=== PATIENT | male | born 1990 | race Caucasian/White ===

== ENCOUNTER 2019-07-17 09:43 | Day surgery (SDC) | payer BC ==
[~2019-07-17 09:43] MED LIST: Ketamine 500 mg/10 ML MDV ONE; Lactated Ringers 1,000 ML IV SCH; Midazolam 1 MG/ML 2 ML SDV ONE; Propofol 200 MG/20 ML SDV ONE; Sodium Chloride 0.9% 10 ML Syringe FLUSH PRN
[2019-07-17] MEDS ORDERED: Lactated Ringers 1,000 ML IV SCH (09:45)
[2019-07-17] MEDS ORDERED: Sodium Chloride 0.9% 10 ML Syringe FLUSH PRN (09:45)
[2019-07-17] MEDS ORDERED: Propofol 200 MG/20 ML SDV ONE (10:58)
[2019-07-17] MEDS ORDERED: Lidocaine 2% 5 ML SDV ONE (10:58)
[2019-07-17] MEDS ORDERED: Midazolam 1 MG/ML 2 ML SDV ONE (10:58)
[2019-07-17] MEDS ORDERED: Ketamine 500 mg/10 ML MDV ONE (10:58)
[2019-07-17] MEDS ORDERED: Ondansetron 4 MG/2 ML SDV ONE (10:58)
--- NOTE | 2019-07-17 11:03 | PCM.PN ---
- General Info Date of Service: 07/17/19 - Review of Systems Systems Review Comment:: 28-year-old male referred for EGD. He has history of upper abdominal bloating and pain. He also states that he has been diagnosed with Crohn's disease. The patient is medically stable to proceed today. His recent history and physical is reviewed and no significant changes are noted. I discussed the proposed EGD with the patient. He agrees to proceed accepting risks. - Patient Data Vitals - Most Recent: Last Vital Signs Temp 98.7 F 07/17/19 10:20 Pulse 74 07/17/19 10:20 Resp 20 07/17/19 10:20 BP 110/52 L 07/17/19 10:20 Pulse Ox 98 07/17/19 10:20 Weight - Most Recent: 89.811 kg Med Orders - Current: Current Medications Lactated Ringer's (Ringers, Lactated) 1,000 mls @ 125 mls/hr IV ASDIRECTED ROBYN Last Admin: 07/17/19 10:29 Dose: 125 mls/hr Sodium Chloride (Saline Flush) 10 ml FLUSH ASDIRECTED PRN PRN Reason: Keep Vein Open Discontinued Medications Ketamine HCl (Ketalar) Confirm Administered Dose 500 mg .ROUTE .STK-MED ONE Stop: 07/17/19 08:40 Midazolam HCl (Versed 1 Mg/Ml) Confirm Administered Dose 2 mg .ROUTE .STK-MED ONE Stop: 07/17/19 08:40 Propofol (Diprivan 20 Ml) Confirm Administered Dose 200 mg .ROUTE .STK-MED ONE Stop: 07/17/19 08:40 - Problem List Review Problem List Initiated/Reviewed/Updated: Yes - My Orders Last 24 Hours: My Active Orders 07/17/19 09:45 Patient Status [ADT] Routine Peripheral IV Care [RC] . DIRECTED Verify Patient Consent Obtain [RC] ASDIRECTED Lactated Ringers [Ringers, Lactated] 1,000 ml IV ASDIRECTED Sodium Chloride 0.9% [Saline Flush] 10 ml FLUSH ASDIRECTED PRN Peripheral IV Insertion Adult [OM.PC] Routine - Assessment Assessment:: epigastric pain - Plan Plan:: EGD
--- NOTE | 2019-07-17 11:32 | PCM.OPNOTE ---
- General Post-Op/Procedure Note Date of Surgery/Procedure: 07/17/19 Operative Procedure(s): incomplete EGD Findings: Grossly normal appearing esophagus Food filled stomach Pre Op Diagnosis: Abdominal pain bloating Post-Op Diagnosis: Food filled stomach Anesthesia Technique: MAC Primary Surgeon: Maik Caraballo Pathology: none Complications: None Condition: Good
--- NOTE | 2019-07-17 15:10 | OR ---
Date of Procedure: 07/17/2019 PREOPERATIVE DIAGNOSES: 1. Epigastric pain. 2. Weight loss. POSTOPERATIVE DIAGNOSES: 1. Food-filled stomach. 2. Grossly normal esophagus. OPERATION PERFORMED: Incomplete esophagogastroscopy. INDICATIONS FOR SURGERY: This 28-year-old male has been having history of epigastric pain and some episodes of vomiting. He is referred for diagnostic upper endoscopy. FINDINGS: The patient's stomach was completely filled with partially digested food, obscuring any visualization of the stomach. The lining of the esophagus grossly appeared normal without evidence of stenosis, but visualization was limited because of food. DESCRIPTION OF PROCEDURE: The patient was taken to the operating room. He was given intravenous sedation and his throat was topically anesthetized. With him in the left lateral decubitus position, the gastroscope was inserted into the mouth through a tooth protector. The gastroscope was then carefully inserted into the esophagus under direct visualization. Some food particles were noted in the esophagus as the scope was slowly advanced and once the GE junction had been reached, visualization in the stomach showed a completely filled stomach full of partially digested food. Visualization of the stomach would thereby be impossible and with significant risk for aspiration, the procedure was aborted and the scope was removed. The patient did have 1 episode of vomiting, but no indication of any aspiration with this procedure. After the scope was removed and the patient's sedation had worn off sufficiently, he was taken from the operating room in satisfactory condition. ESTIMATED BLOOD LOSS: 0. COMPLICATIONS: None. COMMENT: The patient's primary care provider is advised of the operative findings, it was recommended to her that the patient undergo an imaging study to evaluate the anatomy of the stomach, and this will be arranged through her office as the patient will follow up with her in the next few days. KEHINDE Caraballo MD /[id number] [facility]
== END 2019-07-17 12:21 | disposition home or self-care (01) ==
LOC: LL.SDS 09:43
PROVIDERS: ATTEND Surgery
DX: R10.13 Epigastric pain (principal); R63.4 Abnormal weight loss; K21.9 Gastro-esophageal reflux disease without esophagitis; Z79.899 Other long term (current) drug therapy
CPT/HCPCS: 43235; J7120; J2001; J2250; J2405; J2704

== ENCOUNTER → 2019-07-21 | Outpatient (CLI) | payer BC ==
[~2019-07-21] MED LIST changes: +Diatrizoate Meglumine/Diatrizoate Sodium 37% 30 ML Bottle PO ONE; +Iopamidol 612 MG/ML 100 ML Bottle IVPUSH ONE; -Ketamine 500 mg/10 ML MDV ONE; -Lactated Ringers 1,000 ML IV SCH; -Midazolam 1 MG/ML 2 ML SDV ONE; -Propofol 200 MG/20 ML SDV ONE; +Sodium Chloride 0.9% 10 ML Syringe FLUSH ONE; -Sodium Chloride 0.9% 10 ML Syringe FLUSH PRN
[2019-07-21 09:58] LABS: CHLORIDE,CL 108 mmol/L (98-107); SODIUM,NA 143 mmol/L (136-145)
== END ==
LOC: LL.CT 09:33
PROVIDERS: ATTEND Physician Assistant
DX: R19.7 Diarrhea, unspecified (principal); K50.919 Crohn's disease, unspecified, with unspecified complications; R16.1 Splenomegaly, not elsewhere classified; K76.9 Liver disease, unspecified; K63.89 Other specified diseases of intestine
CPT/HCPCS: 36415; 74177; 80053; 85025; Q9963; Q9967

== ENCOUNTER 2022-03-08 08:07 | Emergency (ER) | payer BC ==
[2022-03-08] MEDS ORDERED: methylPREDNISolone Sodium Succinate 125 MG/2 ML SDV IM ONE (08:45)
== END 2022-03-08 09:38 | disposition home or self-care (01) ==
LOC: LL.ED 08:07
DX: M54.42 Lumbago with sciatica, left side (principal); K21.9 Gastro-esophageal reflux disease without esophagitis; Z79.899 Other long term (current) drug therapy
CPT/HCPCS: 72100; 73502; 96372; 99283; J2930

== ENCOUNTER 2022-08-12 20:25 | Emergency (ER) | payer BC ==
[2022-08-12 21:08] LABS: ANION GAP 7.4 meq/L (7-15)
[2022-08-12] MEDS: Ondansetron 4 MG/2 ML SDV IVPUSH ONE (21:34)
[2022-08-12] MEDS: Sodium Chloride 0.9% 500 ML IV SCH (21:35)
[2022-08-12 21:36] LABS: CORONAVIRUS COVID-19 NAA NEGATIVE (NEGATIVE); RESPIRATORY SYNCYTIAL VIR NAA NEGATIVE (NEGATIVE)
[2022-08-12] MEDS ORDERED: Iopamidol 612 MG/ML 100 ML Bottle ONE (21:47)
[2022-08-12] MEDS: Diatrizoate Meglumine/Diatrizoate Sodium 37% 30 ML Bottle PO ONE (22:18)
[2022-08-12] MEDS: Iopamidol 612 MG/ML 100 ML Bottle IVPUSH STA (22:19)
[2022-08-13] MEDS: Pantoprazole 40 MG Vial IVPUSH ONE
[2022-08-13] MEDS: Morphine 4 MG/ML Syringe IVPUSH ONE (00:05)
== END 2022-08-13 00:07 ==
LOC: LL.ED 20:25
DX: K50.018 Crohn's disease of small intestine with other complication (principal); K21.9 Gastro-esophageal reflux disease without esophagitis; Z91.018 Allergy to other foods; Z79.899 Other long term (current) drug therapy; Z20.822 Contact with and (suspected) exposure to COVID-19
CPT/HCPCS: 0241U; 36415; 74177; 80053; 81001; 82150; 83605; 83690; 85025; 96361; 96374; 96375; 99284; 99284-25; C9113; J2270; J2405; J7040; Q9963; Q9967